=== PATIENT | female | born 1960 | race Caucasian/White ===

== ENCOUNTER 2016-12-18 20:45 | Emergency (ER) | payer OTHER ==
[~2016-12-18] VITALS: Ht 162.6 cm; Wt 77.3 kg
[2016-12-18 21:04] VITALS: BP 151/67; PULSE 94; RESP 20; O2SAT 98
--- NOTE | 2016-12-18 21:28 | ED.REPORT ---
HPI-Trauma Minor / Fall Date of Service Dec 18, 2016 ED Provider: Mohan Harrington MD The pt is a 56 y/o female with a hx of HTN and DM who presents to the ED complaining of right sided upper quadrant pain, over the ribs, about 2 hours ago after she fell. She landed on a short fence post. Her pain is exacerbated with movement and inspiration. She denies pain with palpation. Nursing Notes Stated Complaint: HURTS TO BREATH, FELL DOWN Chief Complaint: Multiple Trauma/Fall Nursing Notes Reviewed: Yes Allergies: Coded Allergies: No Known Allergies (Verified , 11/23/05) General Time Seen by MD: 21:25 Chief Complaint Other (right sided upper quadrant pain) Hx Obtained From: Patient Arrived By: Walk-in Onset Occurred: 1 - 4 hours ago Symptom Duration: Since onset Caused by: Fall on ground Quality: Painful (right upper quadrant) Severity: Current: Severe Severity: Maximum: Severe Recent Healthcare: No recent doctor visit Similar Sx Previous: No Past Medical History Past Medical History Reports: Diabetes mellitus (Type 2), Hypertension Past Surgical History Reports: Cholecystectomy Smoking History Unknown if Ever Smoker Social History Other Social History: Good social support Ambulatory Status Independent Review of Systems Reports: right sided upper quadrant pain, over the ribs Complete sys rev & neg: except as marked. Physical Exam Initial Vital Signs Vital Signs (First) Date Time Temp Pulse Resp B/P Pulse Ox O2 Delivery O2 Flow Rate FiO2 12/18/16 21:04 36.7 94 20 151/67 98 Room Air Initial VS: Reviewed, Vital signs normal Head / Eyes: Atraumatic, Normocephalic Respiratory: No respiratory distress Abdomen / GI: No guarding, No distention Extremities: Vascular intact, Neuro intact, No swelling, No tenderness Skin: Warm, Dry, No cyanosis Neurologic: Alert, Oriented, Nonfocal General/Constitutional: Awake, Alert, Cooperative Distress / Hydration: Positive: Distress moderate Neck: Atraumatic, Supple, Full range of motion Respiratory / Chest: Breath sounds NL, Breath sounds = bilat, No rales, No rhonchi, No wheezing Chest Wall / Ribs: Positive: Chest tender upper R (in the intercostal margin) Right upper quadrant pain with deep breathing. Marked pain with trunk flexion Cardiovascular: Heart rate NL, Regular rhythm, Heart sounds NL, No gallop, No murmurs, No rubs Back: Atraumatic, Full range of motion No bony spine tenderness Upper Extremity / MS: Full range of motion, No swelling, Non-tender, No deformity, Neurologic intact, Vascular intact Large bruising at the right distal biceps and forearm. No bony deformity or tenderness. Lower Extremity / Pelvis / MS: Full range of motion, No swelling, Non-tender, No deformity, Neurologic intact, Vascular intact Abrasion on the right knee. Interpretation & Diagnostics Lab Results Interpretation Result Diagram: 12/18/16 2214 12/18/16 2214 Test 12/18/16 22:14 White Blood Count 9.3th/mm3 (3.8-10.1) Red Blood Count 5.23mil/mm3 (3.90-5.20) Hemoglobin 14.2g/dL (12.0-15.6) Hematocrit 43.6% (35.0-46.0) Mean Corpuscular Volume 83.4fL (81-100) Mean Corpuscular Hemoglobin 27.2pg (27.0-35.0) Mean Corpuscular Hemoglobin Concent 32.6% (32.0-37.0) Red Cell Distribution Width 13.6% (12.3-15.4) Platelet Count 226bil/L (150-400) Neutrophils (%) (Auto) 66.3% (40-74) Lymphocytes (%) (Auto) 25.3% (14-46) Monocytes (%) (Auto) 5.4% (4-12) Eosinophils (%) (Auto) 2.5% (0-5) Basophils (%) (Auto) 0.3% (0-3) Sodium Level 139mEq/L (134-144) Potassium Level 4.6mEq/L (3.5-5.2) Chloride Level 103mEq/L (97-108) Carbon Dioxide Level 21mmol/L (18-29) Blood Urea Nitrogen 25mg/dL (6-24) Creatinine 0.75mg/dL (0.57-1.00) Estimat Glomerular Filtration Rate 114mL/min (>59) Glucose Level 126mg/dL (60-99) Calcium Level 10.6mg/dL (8.5-10.1) Total Bilirubin 0.3mg/dL (0.0-1.2) Aspartate Amino Transf (AST/SGOT) 37U/L (0-50) Alanine Aminotransferase (ALT/SGPT) 49U/L (0-32) Alkaline Phosphatase 60U/L (25-150) Total Protein 7.5g/dL (6.4-8.4) Albumin 3.9g/dL (3.4-5.0) Lab values outside NL range: no clinical significance. X-Ray Chest Interpretation Chest Xray Interpretation: IMPRESSION: No acute fractures or dislocations. Dictated by: Estrada Argueta M.D. on 12/18/2016 at 21:43 Approved by: Estrada Argueta M.D. on 12/18/2016 at 21:44 View: Portable, AP & lat Interpretation / Wet Read by: Wet read ED physician CT Abd / Pelvis Interpretation No CT evidence of acute intra-abdominal pathology. Left nephrolithiasis without evidence of hydromephrosis. Previous gastric bypass surgery. Signed by Dr. José Miguel Thornton 12/18/16 23:20 Interpretation / Wet Read by: Interpret - Radiologist Re-Eval/Medical Decision Med Decision/Clinical Course 56-year-old female with blunt trauma to her right arm and right upper quadrant. On physical examination she has evidence of rib cage trauma, but no displaced fractures seen on x-ray or CT. There appears to be no internal injury on CT scan. Source of Hx: Old records Re-Evaluation/Progress : Time of Eval: 21:41 Re-Evaluation/Progress Note: Discussed xray results and plan to do a CT. The pt understands and agrees with the plan. All questions answered. Counseled Regarding: Diagnosis Discharge & Departure Impression: Primary Impression: Rib injury Additional Impressions: Fall from ground level Contusion of right arm Encounter type: initial encounter Qualified Code: S40.021A - Contusion of right upper arm, initial encounter Disposition: Home Discharge Condition All VS Reviewed: Yes Condition: Stable Patient Instructions: Rib Contusion (ED) Additional Instructions: No evidence of internal injury on the CT scan. You injured the lower cartilage ribs so it does not show up on x-ray. Tylenol as needed for pain. Follow-up with your regular doctor for persistent symptoms. Periodic deep breathing will help to prevent complications. Referrals: Marbella Figueroa MD (PCP) Scribe Attestation Portions of this note were transcribed by Malorie Corea. [email or web address], personally performed the history,physical exam and medical decision-making;I reviewed and confirmed the accuracy of the information in the transcribed note. Signed by Catalino Trevino. 12/18/16 copies to: Marbella Figueroa MD, Mohan Crocker MD Dec 18, 2016 21:27 Malorie Corea Dec 18, 2016 21:40
--- NOTE | 2016-12-18 21:46 | DRSVH ---
PROCEDURE: X-RAY RIGHT RIBS INCLUDEING PA CHEST, MINUMUM THREE VIEWS ([id number]) INDICATIONS: FALL,PAIN TECHNIQUE: Two views of the right ribs were acquired, along with a single view chest. COMPARISON: None. FINDINGS: Surgical changes and devices: Upper abdominal surgical clips. Bones and chest wall: No fractures or dislocations. No suspicious bony lesions. Overlying soft tis sues appear unremarkable. Lungs and pleura: No pleural effusions or pneumothorax. Lungs appear clear. Mediastinum: Mediastinal contours appear normal. Heart size is normal. IMPRESSION: No acute fractures or dislocations. Dictated by: Estrada Argueta M.D. on 12/18/2016 at 21:43 Approved by: Estrada Argueta M.D. on 12/18/2016 at 21:44
[2016-12-18 22:21] LABS: BASOPHILS % (AUTO) 0.3 % (0-3); EOSINOPHILS % (AUTO) 2.5 % (0-5); MONOCYTES % (AUTO) 5.4 % (4-12); Mean Corpuscular Hemoglobin 27.2 pg (27.0-35.0); Mean Corpuscular Volume 83.4 fL (81-100); NEUTROPHILS % (AUTO) 66.3 % (40-74); Platelet Count 226 bil/L (150-400)
[2016-12-18 23:46] VITALS: BP 121/69; PULSE 70; RESP 18; O2SAT 99
--- NOTE | 2016-12-19 08:23 | DRSVH ---
PROCEDURE: CT ABDOMEN AND PELVIS WITH CONTRAST ([id number]) INDICATIONS: fall, RUQ pain and tenderness TECHNIQUE: After the administration of intravenous contrast, 5 mm thick sections acquired from the diaphragm to the symphysis. 5 mm coronal and sagittal reformats were acquired. For radiation dose reduction, the following was used: automated exposure control, adjustment of mA and/or kV according to patient siz e. COMPARISON: None. FINDINGS: Image quality: Excellent. ABDOMEN: Lung bases: Lung bases are clear. Heart size is normal. Solid organs: Liver and spleen are normal in size and enhancement. Gallbladder has been removed. B iliary system is non dilated. Pancreas enhances normally. No adrenal nodules. Kidneys demonstrate normal size and enhancement, without hydronephrosis. There is a 3.6 mm renal calculus inferiorly and centrally and nonobstructing on the left. Peritoneum and bowel: [place] in the region of the GE junction would suggest a gastric stapling proc edure. Bowel loops demonstrate normal wall thickness and caliber. No free fluid or air. There is a normal appendix. Nodes and vessels: No retroperitoneal or mesenteric adenopathy by size criteria. Aorta and inferior vena cava are normal in size. Miscellaneous: No ventral hernias. PELVIS: Genitourinary: Bladder wall thickness is normal. Miscellaneous: No inguinal hernias or adenopathy. Bones: No suspicious bony lesions. No vertebral body compression fractures. IMPRESSION: 1. No traumatic abnormality. 2. Nonobstructing left kidney stone. 3. Previous cholecystectomy, previous gastric bypass surgery. Dictated by: Enrike West M.D. on 12/19/2016 at 8:16 this report corresponds to the findings of the preliminary NSR report. Approved by: Enrike West M.D. on 12/19/2016 at 8:21
== END 2016-12-18 23:47 | disposition home or self-care (01) ==
LOC: SED 20:45
DX: S40.021A Contusion of right upper arm, initial encounter (principal); S29.001A Unspecified injury of muscle and tendon of front wall of thorax, initial encounter; W18.39XA Other fall on same level, initial encounter; Y93.9 Activity, unspecified; Y92.9 Unspecified place or not applicable; Y99.9 Unspecified external cause status; I10 Essential (primary) hypertension; E11.9 Type 2 diabetes mellitus without complications
CPT/HCPCS: 36415; 71101; 74177; 80053; 85025; 99284; Q9967